=== PATIENT | female | born 2005 | race Caucasian/White ===

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

== ENCOUNTER 2024-06-07 08:44 | Emergency (ER) | payer OTHER, SELFPAY ==
[2024-06-07 08:56] VITALS: BP 102/76; PULSE 128; RESP 20; TEMP 37.9; O2SAT 100
--- OUTSIDE RECORDS SUMMARY | 2024-06-07 09:05 | XMS_ITS | Clinical Summary ---
Author Organization [facility] Care Team Providers Care Generation Engineering Technologist Name Role Phone Unavailable Primary Care Provider Unavailabl e Encounters Date Type Department Care Team Description 04/19/2024 Transcribe Orders [facility] Call Center [address] [place] [address] Nikky Jensen, ANTENNA DESIGN ENGINEER, INSEAM TRIMMING MACHINE OPERATOR Routine general medical examination at a health care facility (Primary Dx) from Last 3 Months Social History Tobacco Use Types Packs/Day Years Used Date Smoking Tobacco: Never Assessed Comments Unknown Sex and Gender Information Value Date Recorded Sex Assigned at Not on file Legal Sex Female 12:17 AM CDT Gender Identity Not on file Sexual Orientation Not on file Plan of Treatment Health Maintenance Due Date Last Done Comments Hepatitis C Virus (HCV) Screening 2003 Meningococcal B Immunization (1 of 2 - Standard) 2019 Influenza Immunization (#1) 2024 04/12/2006 SARS-COV-2 Immunization ( season) 2024 03/08/2021, 02/08/2021 Pap Smear 01/29/2024 Respiratory Syncytial Virus (RSV) Immunization (Adult) (1 - 1-dose 75+ series) 2078 Hepatitis B Immunization Completed 004, 2003, 2003, Additional history exists Pneumococcal Immunization Combined Aged Out 06/12/2004, 2003, 2003, Additional history exists No longer eligible based on patient's age to complete this topic Varicella Immunization Discontinued 01/31/2005, 2003 Measles Mumps Rubella (MMR) Immunization Discontinued 12/13/2008, 06/12/2004 Polio (IPV) Immunization Discontinued 009, 2003, 2003, Additional history exists DTaP/Tdap/Td Immunization Discontinued 2014, 12/13/2008, 02/02/2005, Additional history exists Hepatitis A Immunization Discontinued 12/06/2014, 01/08 TdaP Immunization Completed 12/06/2014 Human Papillomavirus (HPV) Immunization Completed 06/28/2016, 02/23/2016, 12/18/2015 Meningococcal Immunization (ACWY) Completed 11/13/2019, 12/06/2014 Rotavirus Immunization Aged Out No lo nger eligible based on patient's age to complete this topic
--- NOTE | 2024-06-07 09:20 | ED_ITS ---
HPI - URI/Sore Throat General Chief Complaint: Upper Respiratory Infection Stated Complaint: cough/throat/dizzy/fever Time Seen by Provider: 06/07/24 09:20 History of Present Illness HPI Narrative: 19-year-old female presented for complaint of cough, nasal congestion, headache, sore throat and fever. Symptom onset yesterday. Reports temp up to 1.6 this morning. She did not take anything for symptoms today. She took Tylenol yesterday. Denies shortness of breath, wheezing nausea vomiting diarrhea. 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 Related Data Home Medications ?Medication ?Instructions ?Recorded ?Confirmed ?Last Taken ?Type No Home Medications 06/07/24 06/07/24 Unknown History Allergies Allergy/AdvReac Type Severity Reaction Status Date / Time amoxicillin Allergy Intermediate RASH Verified 06/07/24 09:21 Review of Systems Review of Systems: per HPI Exam Narrative: GENERAL:mildly Ill-appearing, no acute distress. EYES: conjunctivae clear ENT: Mucous membranes moist. TM pearly harris with normal light reflex bilaterally; no tragal tenderness. Oropharynx mildly erythematous without lesions. Tonsils not enlarged and without exudate. No drooling, no hoarseness, no trismus, uvula midline. No tripod positioning, hot potato voice, or soft palate swelling. NECK: Supple. No lymphadenopathy CHEST: Clear to auscultation, breath sounds equal. No respiratory distress, speaks in full sentences. HEART: Regular rate and rhythm. No murmur heard. SKIN: Warm, dry, no rash. NEURO: Alert and oriented x3. Course Course Emergency Course: Patient is aware of diagnosis, understands and agrees to treatment plan. Anticipatory guidance given. Patient agrees to follow-up as directed and is aware of reasons to seek care at the emergency department. Portions of this record may have been created with voice recognition software Level of Care: Express Care Visit Vital Signs Vital signs: Vital Signs Temperature 100.3 F H 06/07/24 08:56 Pulse Rate 128 H 06/07/24 08:56 Respiratory Rate 20 06/07/24 08:56 Blood Pressure 102/76 06/07/24 08:56 Pulse Oximetry 100 06/07/24 08:56 Oxygen Delivery Room Air 06/07/24 08:56 Temperature 100.3 F H 06/07/24 08:56 Pulse Rate 128 H 06/07/24 08:56 Respiratory Rate 20 06/07/24 08:56 Blood Pressure 102/76 06/07/24 08:56 Pulse Oximetry 100 06/07/24 08:56 Oxygen Delivery Room Air 06/07/24 08:56 MDM - URI/Sore Throat MDM Narrative Medical decision making narrative: neg strep flu, covid result reviewed with pt. Advise supportive treatments. Patient is appropriate for outpatient treatment and follow-up. Differential Diagnosis Differential diagnosis: Likely upper respiratory infection, viral infection and pharyngitis Lab Data Labs: Lab Results 06/07/24 Range/Units 09:15 POC Influenza A Ag Negative (Negative) POC Influenza B Ag Negative (Negative) POC SARS CoV-2 Ag Negative (Negative) POC Grp A Strep Screen Negative (Negative) Discharge Plan Discharge Clinical Impression: Viral infection Patient Disposition: Home, Self-Care Condition: Stable Instructions: Antibiotic Form, Upper Respiratory Infection (ED) Additional Instructions: Your rapid covid and influenza tests were negative today. It may be too early to detect the virus, therefore we recommend retesting at home in 1-2 days Continue to follow general precautions: frequent handwashing, wear a mask, isolate/social distance, and avoid crowds if you have a fever. You must be fever free for 24 hours without the use of fever reducing medication (Tylenol/ibuprofen) before returning to work/school/crowds. Rapid strep swab was negative today You will be notified in a few days if the culture comes back positive for strep, and appropriate antibiotics will be called in at that time. if symptoms are due to a viral illness, it is not treated with antibiotics. Viral symptoms can be present for up to 10-14 days. Recommendations: Flonase spray and Zyrtec for sinus congestion Cough syrup may cause drowsiness; avoid driving or take it at night time. Tylenol every 8 hours as needed for pain/fever Soft foods, cool liquids, warm tea. Gargle with warm saltwater twice a day. Chloraseptic spray and throat lozenges. Rest and stay hydrated. --Follow up with your PCP --Go to the ER for worsening symptoms or concerns Patient Language: Bulgarian Prescriptions: No Action No Home Medications Follow-up/Referrals: Bree,Anaid Campbell MD [Primary Care Provider] - Stand Alone Forms: Work/School Release IP Time of Disposition: 09:47
[2024-06-07 09:40] LABS: EDCOVIDSCREEN Negative (Negative); EDINFLUASCREEN Negative (Negative); EDINFLUBSCREEN Negative (Negative); EDSTREPNEGPOS1 Negative (Negative)
== END 2024-06-07 09:50 | disposition home or self-care (01) ==
PROVIDERS: Emergency Provider Nurse Practitioner Family; PCP Pediatrics
DX: B34.9 Viral infection, unspecified (principal); Z20.822 Contact with and (suspected) exposure to COVID-19
CPT/HCPCS: 87081; 87426; 87804; 87880; 99213; G0463